=== PATIENT | female | born 1995 | race Caucasian/White ===

== ENCOUNTER 2020-07-31 15:54 | Emergency (ER) | payer MEDICAID ==
[~2020-07-31] VITALS: Ht 167.6 cm; Wt 47.2 kg
[~2020-07-31 15:54] MED LIST: PHEN-786 PO
[2020-07-31 15:59] VITALS: BP 112/81
== END 2020-07-31 16:14 | disposition home or self-care (01) ==
LOC: ER 15:55
DX: Z02.89 Encounter for other administrative examinations (principal); F15.90 Other stimulant use, unspecified, uncomplicated; F17.200 Nicotine dependence, unspecified, uncomplicated; Z87.440 Personal history of urinary (tract) infections; Z98.890 Other specified postprocedural states; Z72.89 Other problems related to lifestyle; Z79.899 Other long term (current) drug therapy
CPT/HCPCS: 99281

== ENCOUNTER 2021-05-05 09:08 | Emergency (ER) | payer MEDICAID ==
[~2021-05-05] VITALS: Ht 165.1 cm; Wt 54.0 kg
[2021-05-05 09:41] LABS: BASOPHILS % (AUTO) 0.3 % (0-1); EOSINOPHILS % (AUTO) 0.1 % (0-6); HEMOGLOBIN 13.4 g/dl (12.0-16.0); LYMPHOCYTES # (AUTO) 0.7 X10'3 (1.1-4.8); LYMPHOCYTES % (AUTO) 7.6 % (21-51); MEAN CORPUSCULAR HEMOGLOBIN 33.1 PG (27.0-31.0); MEAN CORPUSCULAR HGB CONC 35.2 g/dL (33.0-36.5); MEAN PLATELET VOLUME 7.7 FL (7.4-10.4); MONOCYTES # (AUTO) 1.3 X10'3 (0-0.9); NEUTROPHILS # (AUTO) 7.8 X10'3 (1.8-7.7); PLATELET COUNT 225 X10'3 (140-440); RED BLOOD COUNT 4.04 X10'6 (4.20-5.60); RED CELL DISTRIBUTION WIDTH 13.2 % (11.5-14.5); WHITE BLOOD COUNT 9.8 X10'3 (4.5-11.0)
[2021-05-05 09:50] LABS: CLARITY,URINE CLOUDY (Clear); COLOR,URINE YELLOW (Yellow); GLUCOSE, URINE NEGATIVE (Neg); KETONES,URINE NEGATIVE (Neg); LEUKOCYTE ESTERASE ,URINE LARGE (Neg); NITRITES, URINE POSITIVE (Neg); OCCULT BLOOD,URINE SMALL (Neg); PH,URINE 7.5 (4.8-8.0); PROTEIN,URINE TRACE mg/dl (Neg); UA COLLECTION TYPE CLN CATCH MIDSTREAM; UROBILINOGEN,URINE 0.2 E.U/dL (0.2-1.0)
[2021-05-05 09:52] LABS: URINE HCG NEGATIVE (NEG)
[2021-05-05 09:57] LABS: ALANINE AMINOTRANSFERASE 12 U/L (12-78); ALBUMIN 3.8 G/DL (3.4-5.0); ALKALINE PHOSPHATASE 63 IU/L (46-116); ANION GAP 9 (8-16); ASPARTATE AMINO TRANSFERASE 12 U/L (10-37); BILIRUBIN,TOTAL 0.7 MG/DL (0.1-1.0); BLOOD UREA NITROGEN 5 MG/DL (7-18); BUN/CREATININE RATIO 7.4 (6.6-38.0); CALCIUM 8.8 MG/DL (8.5-10.1); CHLORIDE 101 MMOL/L (99-107); CREATININE 0.68 MG/DL (0.40-0.90); GLUCOSE 106 MG/DL (70-104); LIPASE < 50 U/L (73-393); POTASSIUM 3.6 MMOL/L (3.5-5.1); SODIUM 136 MMOL/L (135-145); TOTAL CARBON DIOXIDE 25.6 MMOL/L (24-32); TOTAL PROTEIN 7.8 G/DL (6.4-8.2); eGFR > 90 ML/MIN
[2021-05-05 09:57] LABS: SQUAMOUS EPITHELIAL CELL,UR MANY /LPF (FEW)
[2021-05-05 09:59] LABS: BACTERIA,URINE 3+ /HPF (Neg); WBC,URINE TNTC /HPF (0-4)
[2021-05-05 10:00] LABS: RBC,URINE 0-2 /HPF (0-2)
[2021-05-05 10:01] LABS: WBC CLUMPS,URINE MODERATE /HPF (NEGATIVE)
[2021-05-05 10:02] LABS: TRANSITIONAL EPI CELLS,URINE FEW /HPF
[2021-05-05] MEDS ORDERED: HYDROcodone/acetaminophen 5mg/325mg tablet PO ONE (10:20)
[2021-05-05] MEDS ORDERED: CefTRIAXone 2gm/D5W 50ml BAG 50 ML IV SCH (10:20)
[2021-05-05] MEDS ORDERED: ondansetron/PF 4mg/2ml inj IV ONE (10:20)
[2021-05-05] MEDS ORDERED: normal saline 1000ML IV soln IVB ONE (10:20)
[2021-05-05 11:47] VITALS: BP 113/75
[2021-05-05] MEDS ORDERED: ketorolac tromethamine 15mg/ml inj. IV ONE (12:10)
[2021-05-05] MEDS ORDERED: ketorolac trometh. 30mg/ml inj. IV ONE (12:10)
[2021-05-05] MEDS ORDERED: CEFP100S9 PO (12:40)
== END 2021-05-05 12:47 | disposition home or self-care (01) ==
LOC: ER 09:09
DX: N12 Tubulo-interstitial nephritis, not specified as acute or chronic (principal); R30.0 Dysuria; R11.0 Nausea; R10.84 Generalized abdominal pain; R51.9 Headache, unspecified; R50.9 Fever, unspecified; F15.90 Other stimulant use, unspecified, uncomplicated; Z98.890 Other specified postprocedural states; Z72.0 Tobacco use; Z79.2 Long term (current) use of antibiotics
CPT/HCPCS: 36415; 80053; 81001; 81025; 83690; 84145; 85025; 96365; 96375; 99284; J0696; J1885; J2405; J7030

== ENCOUNTER 2021-07-23 03:07 | Inpatient (IN) | payer MEDICAID ==
[~2021-07-23] VITALS: Ht 167.6 cm; Wt 45.0 kg
[~2021-07-23 03:07] MED LIST changes: +CEFP100S9 PO
[2021-07-23] MEDS ORDERED: naloxone 2mg/2ml inj ONE (03:22)
[2021-07-23] MEDS ORDERED: normal saline 1000ML IV soln IVB ONE (03:30)
[2021-07-23 03:43] LABS: URINE HCG NEGATIVE (NEG)
[2021-07-23 03:51] LABS: CLARITY,URINE SLIGHTLY CLOUDY (Clear); COLOR,URINE YELLOW (Yellow); GLUCOSE, URINE NEGATIVE (Neg); KETONES,URINE NEGATIVE (Neg); LEUKOCYTE ESTERASE ,URINE NEGATIVE (Neg); NITRITES, URINE NEGATIVE (Neg); OCCULT BLOOD,URINE LARGE (Neg); PROTEIN,URINE TRACE mg/dl (Neg); UROBILINOGEN,URINE 0.2 E.U/dL (0.2-1.0)
[2021-07-23 03:54] LABS: UA COLLECTION TYPE STRAIGHT CATH; URINE AMPHETAMINE SCREEN POSITIVE (Neg); URINE BARBITUATE SCREEN NEGATIVE (Neg); URINE BENZODIAZEPINES SCREEN POSITIVE (Neg); URINE CANNABINOID SCREEN NEGATIVE (Neg); URINE COCAINE SCREEN NEGATIVE (Neg); URINE METHADONE SCREEN NEGATIVE (Neg); URINE OPIATE SCREEN NEGATIVE (Neg); URINE PHENCYCLIDINE SCREEN NEGATIVE (Neg)
[2021-07-23 03:58] LABS: BACTERIA,URINE 2+ /HPF (Neg); RBC,URINE TNTC /HPF (0-2); SQUAMOUS EPITHELIAL CELL,UR FEW /LPF (FEW)
[2021-07-23 03:59] LABS: MUCUS STRANDS FEW /LPF (Neg)
[2021-07-23 04:00] LABS: CELLULAR CAST 0-4 /LPF (NEGATIVE)
--- NOTE | 2021-07-23 04:30 | NUR ---
Call out to poison control, recommendations follow: Watch for [employer] and respiratory depression from valium and gabapentin, intubate as needed. Do not use flumazenil as it may precipitate seizure. Gabapentin may cause hypotension, treat with IV fluid and vasopressors as needed. Meclizine may cause tachycardia, N/V or seizures. Treat seizures with ativan or versed as needed. Repeat EKG in 4 hours, if QRSD is greater than 120 then give 2 amps of sodium bicarb bolus. Continuous cardiac monitoring and supportive care until pt returns to her baseline.
[2021-07-23 04:42] LABS: BASOPHILS % (AUTO) 0.6 % (0-1); EOSINOPHILS % (AUTO) 0.6 % (0-6); HEMATOCRIT 32.7 % (35.0-45.0); HEMOGLOBIN 11.2 g/dl (12.0-16.0); LYMPHOCYTES # (AUTO) 1.4 X10'3 (1.1-4.8); LYMPHOCYTES % (AUTO) 30.2 % (21-51); MEAN CORPUSCULAR HEMOGLOBIN 31.6 PG (27.0-31.0); MEAN CORPUSCULAR HGB CONC 34.3 g/dL (33.0-36.5); MEAN CORPUSCULAR VOLUME 92.3 FL (78-98); MEAN PLATELET VOLUME 7.4 FL (7.4-10.4); MONOCYTES # (AUTO) 0.4 X10'3 (0-0.9); MONOCYTES % (AUTO) 8.9 % (2-12); NEUTROPHILS # (AUTO) 2.8 X10'3 (1.8-7.7); NEUTROPHILS % (AUTO) 59.7 % (42-75); PLATELET COUNT 229 X10'3 (140-440); RED BLOOD COUNT 3.54 X10'6 (4.20-5.60); RED CELL DISTRIBUTION WIDTH 12.9 % (11.5-14.5); WHITE BLOOD COUNT 4.7 X10'3 (4.5-11.0)
[2021-07-23 05:01] LABS: ALANINE AMINOTRANSFERASE 10 U/L (12-78); ALBUMIN 2.4 G/DL (3.4-5.0); ALBUMIN/GLOBULIN RATIO 1.1 (1.1-1.5); ALKALINE PHOSPHATASE 44 IU/L (46-116); ANION GAP 8 (8-16); ASPARTATE AMINO TRANSFERASE 12 U/L (10-37); BILIRUBIN,TOTAL 0.2 MG/DL (0.1-1.0); BLOOD UREA NITROGEN 10 MG/DL (7-18); BUN/CREATININE RATIO 16.9 (6.6-38.0); CALCIUM 6.6 MG/DL (8.5-10.1); CHLORIDE 114 MMOL/L (99-107); CREATININE 0.59 MG/DL (0.40-0.90); GLUCOSE 69 MG/DL (70-104); POTASSIUM 3.2 MMOL/L (3.5-5.1); SODIUM 147 MMOL/L (135-145); TOTAL CARBON DIOXIDE 24.6 MMOL/L (24-32); TOTAL PROTEIN 4.5 G/DL (6.4-8.2); eGFR > 90 ML/MIN
[2021-07-23 05:09] LABS: ACETAMINOPHEN 8.6 UG/ML (10-30)
[2021-07-23 05:10] LABS: ETHANOL < 0.010 GM/DL (0.0-0.010)
[2021-07-23] MEDS ORDERED: magnesium 2GM in 50ml NS 50 ML IV ONE (05:20)
[2021-07-23] MEDS ORDERED: potassium CL 10mEq/100ml bag 100 ML IV ONE (05:20)
[2021-07-23] MEDS ORDERED: magnesium Cl slow-release 64mg tablet PO PRN (05:35)
[2021-07-23] MEDS ORDERED: normal saline 1000ml 1,000 ML IV SCH (05:35)
[2021-07-23] MEDS ORDERED: potassium Cl 20 mEq SR tablet PO PRN ×2 (05:35)
[2021-07-23] MEDS ORDERED: magnesium 4gm in 100ml NS 100 ML IV PRN (05:35)
[2021-07-23] MEDS ORDERED: potassium CL 10mEq/100ml bag 100 ML IV PRN (05:35)
[2021-07-23] MEDS ORDERED: acetaminophen 325mg tablet PO PRN ×2 (05:35)
[2021-07-23] MEDS ORDERED: magnesium 2GM in 50ml NS 50 ML IV PRN (05:35)
[2021-07-23] MEDS ORDERED: ondansetron/PF 4mg/2ml inj IV PRN (05:35)
[2021-07-23 05:50] LABS: MAGNESIUM 1.4 MG/DL (1.5-2.4)
[2021-07-23 06:11] VITALS: BP 94/58
[2021-07-23] MEDS ORDERED: pantoprazole 40mg Tablet.DR PO SCH (07:30)
--- NOTE | 2021-07-23 07:55 | NUR ---
Notified patient left building; all belongings still in Patient Belongings bags outside patient room; pharmacist in charge notified.
[2021-07-23] MEDS ORDERED: heparin, porcine 5000 units/ml vial SQ SCH (08:00)
[2021-07-23] MEDS ORDERED: K and/or MAG REPLACEMENT MC SCH (08:00)
== END 2021-07-23 07:55 | disposition left against medical advice (07) | DRG 812 ==
LOC: ER 03:08 → OBSVTOIN 05:37 → ED HOLD 05:37
PROVIDERS: ADMIT Internal Medicine; ATTEND Internal Medicine
DX: T45.0X1A Poisoning by antiallergic and antiemetic drugs, accidental (unintentional), initial encounter (principal); R45.851 Suicidal ideations; E83.42 Hypomagnesemia; T42.4X1A Poisoning by benzodiazepines, accidental (unintentional), initial encounter; T42.6X1A Poisoning by other antiepileptic and sedative-hypnotic drugs, accidental (unintentional), initial encounter; F12.90 Cannabis use, unspecified, uncomplicated; E87.6 Hypokalemia; F15.10 Other stimulant abuse, uncomplicated; F17.200 Nicotine dependence, unspecified, uncomplicated; Y92.89 Other specified places as the place of occurrence of the external cause
CPT/HCPCS: 36415; 80053; 80305; 80320; 80329; 81001; 81025; 83735; 84443; 85025; 93005; 96360; 99285; G0378; J2310; J3475; J3480; J7030

== ENCOUNTER 2021-09-06 20:33 | Emergency (ER) | payer MEDICAID ==
[~2021-09-06] VITALS: Ht 165.1 cm; Wt 52.0 kg
[2021-09-07 00:11] LABS: BASOPHILS # (AUTO) 0.1 X10'3 (0-0.2); EOSINOPHILS % (AUTO) 0.8 % (0-6); HEMATOCRIT 34.6 % (35.0-45.0); LYMPHOCYTES # (AUTO) 1.8 X10'3 (1.1-4.8); LYMPHOCYTES % (AUTO) 31.8 % (21-51); MEAN CORPUSCULAR HEMOGLOBIN 31.6 PG (27.0-31.0); MEAN CORPUSCULAR HGB CONC 34.6 g/dL (33.0-36.5); MEAN CORPUSCULAR VOLUME 91.3 FL (78-98); MEAN PLATELET VOLUME 7.9 FL (7.4-10.4); MONOCYTES # (AUTO) 0.7 X10'3 (0-0.9); MONOCYTES % (AUTO) 12.9 % (2-12); NEUTROPHILS # (AUTO) 3.1 X10'3 (1.8-7.7); NEUTROPHILS % (AUTO) 53.5 % (42-75); PLATELET COUNT 282 X10'3 (140-440); RED BLOOD COUNT 3.78 X10'6 (4.20-5.60); RED CELL DISTRIBUTION WIDTH 12.9 % (11.5-14.5); WHITE BLOOD COUNT 5.8 X10'3 (4.5-11.0)
[2021-09-07 00:20] LABS: URINE HCG NEGATIVE (NEG)
[2021-09-07 00:23] LABS: CLARITY,URINE SLIGHTLY CLOUDY (Clear); COLOR,URINE YELLOW (Yellow); GLUCOSE, URINE NEGATIVE (Neg); KETONES,URINE NEGATIVE (Neg); LEUKOCYTE ESTERASE ,URINE NEGATIVE (Neg); NITRITES, URINE NEGATIVE (Neg); OCCULT BLOOD,URINE LARGE (Neg); PROTEIN,URINE TRACE mg/dl (Neg); UROBILINOGEN,URINE 0.2 E.U/dL (0.2-1.0)
[2021-09-07 00:31] LABS: UA COLLECTION TYPE NON-SPECIFIED
[2021-09-07 00:32] LABS: AMORPHOUS PHOSPHATES 1+; BACTERIA,URINE FEW /HPF (Neg); RBC,URINE 50-100 /HPF (0-2); SQUAMOUS EPITHELIAL CELL,UR FEW /LPF (FEW); WBC,URINE 0-4 /HPF (0-4)
[2021-09-07 00:35] LABS: ALANINE AMINOTRANSFERASE 10 U/L (12-78); ALBUMIN 3.6 G/DL (3.4-5.0); ALBUMIN/GLOBULIN RATIO 1.1 (1.1-1.5); ALKALINE PHOSPHATASE 61 IU/L (46-116); ANION GAP 10 (8-16); ASPARTATE AMINO TRANSFERASE 11 U/L (10-37); BILIRUBIN,TOTAL 0.4 MG/DL (0.1-1.0); BLOOD UREA NITROGEN 11 MG/DL (7-18); BUN/CREATININE RATIO 17.7 (6.6-38.0); CALCIUM 9.2 MG/DL (8.5-10.1); CHLORIDE 107 MMOL/L (99-107); CREATININE 0.62 MG/DL (0.40-0.90); GLUCOSE 102 MG/DL (70-104); POTASSIUM 3.8 MMOL/L (3.5-5.1); SODIUM 143 MMOL/L (135-145); TOTAL CARBON DIOXIDE 26.1 MMOL/L (24-32); eGFR > 90 ML/MIN
[2021-09-07 00:49] LABS: URINE AMPHETAMINE SCREEN POSITIVE (Neg); URINE BARBITUATE SCREEN NEGATIVE (Neg); URINE BENZODIAZEPINES SCREEN NEGATIVE (Neg); URINE CANNABINOID SCREEN POSITIVE (Neg); URINE COCAINE SCREEN POSITIVE (Neg); URINE METHADONE SCREEN NEGATIVE (Neg); URINE OPIATE SCREEN NEGATIVE (Neg); URINE PHENCYCLIDINE SCREEN NEGATIVE (Neg)
[2021-09-07 01:16] VITALS: BP 130/78
== END 2021-09-07 01:18 | disposition home or self-care (01) ==
LOC: ER 20:34
DX: N93.8 Other specified abnormal uterine and vaginal bleeding (principal); F15.10 Other stimulant abuse, uncomplicated
CPT/HCPCS: 36415; 80053; 80305; 81001; 81025; 85025; 99283

== ENCOUNTER 2021-09-14 03:56 | Emergency (ER) | payer MEDICAID ==
[~2021-09-14] VITALS: Ht 165.1 cm; Wt 54.5 kg
[2021-09-14 03:59] VITALS: BP 110/70
[2021-09-14 04:23] LABS: CLARITY,URINE CLOUDY (Clear); COLOR,URINE YELLOW (Yellow); GLUCOSE, URINE NEGATIVE (Neg); KETONES,URINE NEGATIVE (Neg); LEUKOCYTE ESTERASE ,URINE SMALL (Neg); NITRITES, URINE POSITIVE (Neg); OCCULT BLOOD,URINE LARGE (Neg); PROTEIN,URINE TRACE mg/dl (Neg); URINE HCG NEGATIVE (NEG); UROBILINOGEN,URINE 0.2 E.U/dL (0.2-1.0)
[2021-09-14 04:25] LABS: UA COLLECTION TYPE NON-SPECIFIED
[2021-09-14 04:32] LABS: WBC,URINE 20-30 /HPF (0-4)
[2021-09-14 04:33] LABS: BACTERIA,URINE 4+ /HPF (Neg); MUCUS STRANDS MODERATE /LPF (Neg); SQUAMOUS EPITHELIAL CELL,UR MODERATE /LPF (FEW)
[2021-09-14 04:34] LABS: TRICHOMONAS,URINE FEW /HPF (NEGATIVE)
[2021-09-14] MEDS ORDERED: CEPH-585 PO (05:38)
[2021-09-14] MEDS ORDERED: cephalexin 250mg capsule PO ONE (05:40)
[2021-09-14] MEDS ORDERED: DOXYCYCLINE 100MG CAPSULE PO STA (05:43)
[2021-09-14] MEDS ORDERED: DOXY-1 PO (05:44)
== END 2021-09-14 05:51 | disposition home or self-care (01) ==
LOC: ER 03:56
DX: N39.0 Urinary tract infection, site not specified (principal)
CPT/HCPCS: 81001; 81025; 99283

== ENCOUNTER 2022-01-29 13:29 | Emergency (ER) | payer MEDICAID ==
[~2022-01-29] VITALS: Ht 165.1 cm; Wt 52.3 kg
[2022-01-29 14:09] VITALS: BP 111/63
[2022-01-29] MEDS ORDERED: acetaminophen 325mg tablet PO ONE (14:20)
[2022-01-29] MEDS ORDERED: normal saline 1000ML IV soln IVB ONE (14:45)
[2022-01-29 15:09] LABS: BASOPHILS % (AUTO) 0.2 % (0-1); EOSINOPHILS % (AUTO) 0.1 % (0-6); HEMATOCRIT 31.8 % (35.0-45.0); HEMOGLOBIN 10.9 g/dl (12.0-16.0); LYMPHOCYTES # (AUTO) 0.9 X10'3 (1.1-4.8); LYMPHOCYTES % (AUTO) 8.7 % (21-51); MEAN CORPUSCULAR HEMOGLOBIN 30.7 PG (27.0-31.0); MEAN CORPUSCULAR HGB CONC 34.4 g/dL (33.0-36.5); MEAN CORPUSCULAR VOLUME 89.3 FL (78-98); MEAN PLATELET VOLUME 8.3 FL (7.4-10.4); MONOCYTES # (AUTO) 1.5 X10'3 (0-0.9); MONOCYTES % (AUTO) 14.2 % (2-12); NEUTROPHILS # (AUTO) 8.3 X10'3 (1.8-7.7); NEUTROPHILS % (AUTO) 76.8 % (42-75); PLATELET COUNT 263 X10'3 (140-440); RED BLOOD COUNT 3.56 X10'6 (4.20-5.60); RED CELL DISTRIBUTION WIDTH 12.9 % (11.5-14.5); WHITE BLOOD COUNT 10.8 X10'3 (4.5-11.0)
[2022-01-29 15:19] LABS: ALANINE AMINOTRANSFERASE 7 U/L (12-78); ALBUMIN 3.1 G/DL (3.4-5.0); ALBUMIN/GLOBULIN RATIO 0.8 (1.1-1.5); ALKALINE PHOSPHATASE 66 IU/L (46-116); ANION GAP 8 (8-16); ASPARTATE AMINO TRANSFERASE 8 U/L (10-37); BILIRUBIN,TOTAL 0.3 MG/DL (0.1-1.0); BLOOD UREA NITROGEN 11 MG/DL (7-18); BUN/CREATININE RATIO 16.7 (6.6-38.0); CALCIUM 8.4 MG/DL (8.5-10.1); CHLORIDE 102 MMOL/L (99-107); CREATININE 0.66 MG/DL (0.40-0.90); GLUCOSE 114 MG/DL (70-104); POTASSIUM 3.7 MMOL/L (3.5-5.1); SODIUM 138 MMOL/L (135-145); TOTAL CARBON DIOXIDE 27.7 MMOL/L (24-32); eGFR > 90 ML/MIN
[2022-01-29 15:46] LABS: URINE HCG NEGATIVE (NEG)
[2022-01-29 15:47] LABS: CLARITY,URINE CLOUDY (Clear); COLOR,URINE YELLOW (Yellow); GLUCOSE, URINE NEGATIVE (Neg); KETONES,URINE NEGATIVE (Neg); LEUKOCYTE ESTERASE ,URINE SMALL (Neg); NITRITES, URINE NEGATIVE (Neg); OCCULT BLOOD,URINE LARGE (Neg); PROTEIN,URINE 30 mg/dl (Neg)
[2022-01-29 15:58] LABS: UA COLLECTION TYPE CLN CATCH MIDSTREAM
[2022-01-29 16:10] LABS: BACTERIA,URINE 4+ /HPF (Neg); MUCUS STRANDS MODERATE /LPF (Neg); RBC,URINE 50-100 /HPF (0-2); SQUAMOUS EPITHELIAL CELL,UR FEW /LPF (FEW); WBC CLUMPS,URINE MODERATE /HPF (NEGATIVE); WBC,URINE 50-100 /HPF (0-4)
[2022-01-29] MEDS ORDERED: cephalexin 500mg capsule PO ONE (16:35)
[2022-01-29] MEDS ORDERED: CEPH500C81 PO (16:38)
== END 2022-01-29 16:59 | disposition home or self-care (01) ==
LOC: ER 13:29
DX: N39.0 Urinary tract infection, site not specified (principal); Z20.822 Contact with and (suspected) exposure to COVID-19; D64.9 Anemia, unspecified; F15.20 Other stimulant dependence, uncomplicated
CPT/HCPCS: 36415; 80053; 81001; 81025; 85025; 87077; 87088; 87186; 87635; 99283; C9803

== ENCOUNTER 2022-10-07 02:09 | Emergency (ER) | payer MEDICAID ==
[~2022-10-07] VITALS: Ht 165.1 cm; Wt 58.4 kg
[2022-10-07 03:27] LABS: UA COLLECTION TYPE CLN CATCH MIDSTREAM
[2022-10-07 03:29] LABS: CLARITY,URINE CLOUDY (Clear); COLOR,URINE YELLOW (Yellow); PH,URINE 7.5 (4.8-8.0)
[2022-10-07 03:30] LABS: GLUCOSE, URINE NEGATIVE (Neg); KETONES,URINE NEGATIVE (Neg); LEUKOCYTE ESTERASE ,URINE LARGE (Neg); NITRITES, URINE NEGATIVE (Neg); OCCULT BLOOD,URINE NEGATIVE (Neg); PROTEIN,URINE 30 mg/dl (Neg); UROBILINOGEN,URINE 0.2 E.U/dL (0.2-1.0)
[2022-10-07 03:31] LABS: URINE AMPHETAMINE SCREEN NEGATIVE (Neg); URINE BARBITUATE SCREEN NEGATIVE (Neg); URINE BENZODIAZEPINES SCREEN NEGATIVE (Neg); URINE CANNABINOID SCREEN NEGATIVE (Neg); URINE COCAINE SCREEN NEGATIVE (Neg); URINE METHADONE SCREEN NEGATIVE (Neg); URINE OPIATE SCREEN NEGATIVE (Neg); URINE PHENCYCLIDINE SCREEN NEGATIVE (Neg); WBC,URINE TNTC /HPF (0-4)
[2022-10-07 03:32] LABS: BACTERIA,URINE 3+ /HPF (Neg); MUCUS STRANDS FEW /LPF (Neg); RBC,URINE 0-2 /HPF (0-2); SQUAMOUS EPITHELIAL CELL,UR MODERATE /LPF (FEW); TRANSITIONAL EPI CELLS,URINE FEW /HPF
[2022-10-07 03:33] LABS: WBC CLUMPS,URINE MODERATE /HPF (NEGATIVE)
[2022-10-07] MEDS ORDERED: nitrofuran monohydrate/nitrofuran macrocrysal 100 MG (MacroBID) capsule PO ONE (04:20)
[2022-10-07] MEDS ORDERED: NITR100C6 PO (04:21)
[2022-10-07] MEDS ORDERED: CefTRIAXone 1000mg IM Kit (w/lidocaine diluent) IM ONE (04:25)
[2022-10-07] MEDS ORDERED: azithromycin 250mg tablet PO ONE (04:25)
[2022-10-07 04:49] VITALS: BP 96/57
== END 2022-10-07 04:51 | disposition home or self-care (01) ==
LOC: ER 02:10
DX: O23.42 Unspecified infection of urinary tract in pregnancy, second trimester (principal); N39.0 Urinary tract infection, site not specified; Z3A.20 20 weeks gestation of pregnancy; F15.20 Other stimulant dependence, uncomplicated; Z88.5 Allergy status to narcotic agent; Z91.018 Allergy to other foods; Z98.890 Other specified postprocedural states
CPT/HCPCS: 36415; 80305; 81001; 87210; 87491; 87591; 96372; 99284; J0696

== ENCOUNTER 2023-01-22 21:02 | Emergency (ER) | payer MEDICAID ==
[~2023-01-22] VITALS: Ht 165.1 cm; Wt 71.4 kg
[~2023-01-22 21:02] MED LIST changes: -CEFP100S9 PO; +NITR100C6 PO; -PHEN-786 PO
[2023-01-22 21:56] VITALS: BP 103/67; PULSE 87; RESP 20; TEMP 97.8; O2SAT 100
[2023-01-23] MEDS ORDERED: CefTRIAXone 1000mg IM Kit (w/lidocaine diluent) IM STA (00:49)
[2023-01-23] MEDS ORDERED: azithromycin 250mg tablet PO ONE (00:50)
[2023-01-23] MEDS ORDERED: PENICILLIN G BENZATHINE 2,400,000 UNIT/4 ML SYRINGE IM STA (01:47)
[2023-01-23 01:48] LABS: SYPHILIS SCREENING TEST POC POSITIVE (Negative)
[2023-01-23 12:26] LABS: BILIRUBIN,URINE NEGATIVE (Neg); CLARITY,URINE SLIGHTLY CLOUDY (Clear); COLOR,URINE YELLOW (Yellow); GLUCOSE, URINE NEGATIVE (Neg); KETONES,URINE NEGATIVE (Neg); LEUKOCYTE ESTERASE ,URINE NEGATIVE (Neg); NITRITES, URINE NEGATIVE (Neg); OCCULT BLOOD,URINE NEGATIVE (Neg); PH,URINE 6.5 (4.8-8.0); PROTEIN,URINE NEGATIVE (Neg); UA COLLECTION TYPE VOIDED; UROBILINOGEN,URINE 0.2 E.U/dL (0.2-1.0)
[2023-01-23 12:35] LABS: BACTERIA,URINE 3+ /HPF (Neg); RBC,URINE NONE SEEN /HPF (0-2)
[2023-01-23 12:36] LABS: CAL OXALATE CRYSTALS 3+ /HPF (NEGATIVE); MUCUS STRANDS NONE SEEN /LPF (Neg); SQUAMOUS EPITHELIAL CELL,UR MODERATE /LPF (FEW)
== END 2023-01-23 02:20 | disposition home or self-care (01) ==
LOC: ER 21:02
DX: O98.113 Syphilis complicating pregnancy, third trimester (principal); Z3A.35 35 weeks gestation of pregnancy; F15.90 Other stimulant use, unspecified, uncomplicated; Z98.891 History of uterine scar from previous surgery; Z88.8 Allergy status to other drugs, medicaments and biological substances; Z79.899 Other long term (current) drug therapy; Z91.018 Allergy to other foods
CPT/HCPCS: 36415; 81001; 86592; 87088; 87491; 87591; 96372; 99284; J0561; J0696